=== PATIENT | male | born 1940 | race Caucasian/White ===

== ENCOUNTER 2017-09-30 14:00 | Day surgery (SDC) | payer MEDICARE ==
[~2017-09-30] VITALS: Ht 180.3 cm; Wt 80.9 kg
--- NOTE | 2017-09-30 14:10 | NUR ---
RECIEVED TO ROOM 2225 DIRECT ADMIT FROM [facility] VIA AMBULANCE. REPORTS VOMITING FOR PAST 2 DAYS. CHANDLER TO Dada GUAJARDO.
[2017-09-30] MEDS ORDERED: CARAFATE1 G PO (14:11)
[2017-09-30] MEDS ORDERED: ZOFRAN ODT4 MG/UDTAB PO (14:11)
[2017-09-30] MEDS ORDERED: TRADJENTA5 MG PO (14:12)
[2017-09-30] MEDS ORDERED: GLUCOPHAGE500 MG PO (14:13)
[2017-09-30] MEDS ORDERED: LISINOPRIL5 MG PO (14:13)
[2017-09-30] MEDS ORDERED: TRICOR145 MG PO (14:14)
[2017-09-30] MEDS ORDERED: LIPITOR20 MG PO (14:15)
[2017-09-30 14:22] VITALS: BP 168/91; BMI 24.8
[2017-09-30 15:03] VITALS: Ht 180.3 cm; Wt 80.9 kg
--- NOTE | 2017-09-30 15:30 | NUR ---
NO CHANGES NOTED AT THIS TIME. PREOP MEDS GIVEN.
--- NOTE | 2017-09-30 16:12 | NUR ---
OFF FLOOR TO GI LAB VIA BED.
--- NOTE | 2017-09-30 18:00 | NUR ---
RETURNED TO ROOM FROM GI LAB. VSS. CONTINUE TO BE NPO. VISITOR AT BEDSIDE.
[2017-09-30 20:56] VITALS: BP 170/92
[2017-10-01 01:42] VITALS: BP 137/74
--- NOTE | 2017-10-01 04:45 | NUR ---
PT RESTING QUIETLY, EYES CLOSED. RESP EVEN, UNLABORED. NO DISTRESS NOTED. CONTINUE NEWSPAPER PEDDLER'S PLAN OF CARE.
[2017-10-01 05:22] VITALS: BP 131/79
[2017-10-01 06:22] LABS: BASOPHILS 0.3 % (0-2); EOSINOPHILS 6.9 % (0-7); HEMATOCRIT 36.7 % (42.0-54.0); HEMOGLOBIN 11.5 g/dL (13.5-17.5); IMMATURE GRANULOCYTES 0.2 % (0-5); LYMPHOCYTES 30.8 % (15-50); MCH 26.9 pg (26.0-34.0); MCHC 31.3 g/dL (31.0-37.0); MCV 85.7 fL (80.0-100.0); MEAN PLATELET VOLUME 9.4 fL (7.4-10.4); MONOCYTES 9.8 % (2-11); PLATELET COUNT 237 10x3/uL (130-400); RBC 4.28 10x6/uL (4.20-6.10); WBC 6.6 10x3/uL (4.8-10.8)
[2017-10-01 06:38] LABS: ANION GAP 11.5 mmol/L (8-16); CALCIUM 8.5 mg/dL (8.5-10.1); CARBON DIOXIDE 26.9 mmol/L (21.0-32.0); CREATININE - SERUM 1.2 mg/dL (0.6-1.3); POTASSIUM - SERUM 3.4 mmol/L (3.5-5.1)
--- NOTE | 2017-10-01 07:30 | NUR ---
ASSESSMENT COMPLETE. IV TO R AC PATENT. NS INFUSING AT 125 CC/HR VIA PUMP. DENIES ANY NEEDS AT THIS TIME.
--- NOTE | 2017-10-01 12:00 | NUR ---
TOLERATING FOOD WITHOUT DIFFICULTY.
[2017-10-01 12:31] VITALS: BP 146/71
[2017-10-01] MEDS ORDERED: PROTONIX40 MG PO (13:19)
[2017-10-01] MEDS ORDERED: CARAFATE1 G/10 ML PO (13:19)
--- NOTE | 2017-10-01 14:20 | NUR ---
IV REMOVED. CATHETER TIP INTACT. DISCHARGE TEACHING GIVEN TO PATIENT. VOICED UNDERSTANDING.
--- NOTE | 2017-10-01 14:30 | NUR ---
DC'D HOME WITH FAMILY. ESCORTED TO VEHICLE VIA WC WITH BELONGINGS.
== END 2017-10-01 14:30 | disposition home or self-care (01) ==
LOC: OBSVTIME → D.OPS 14:00 → D.MS 14:04 → OBSVTIME 14:04 → D.MS 14:04 → D.OPS 10-01 14:30 → D.MS 10-01 14:30
PROVIDERS: Internal Medicine Gastroenterology
DX: T18.128A Food in esophagus causing other injury, initial encounter (principal); K22.2 Esophageal obstruction; K44.9 Diaphragmatic hernia without obstruction or gangrene; K29.40 Chronic atrophic gastritis without bleeding; K76.0 Fatty (change of) liver, not elsewhere classified; K57.90 Diverticulosis of intestine, part unspecified, without perforation or abscess without bleeding; D50.9 Iron deficiency anemia, unspecified; E11.9 Type 2 diabetes mellitus without complications; E78.5 Hyperlipidemia, unspecified; I10 Essential (primary) hypertension; K21.9 Gastro-esophageal reflux disease without esophagitis; F32.9 Major depressive disorder, single episode, unspecified; Z79.84 Long term (current) use of oral hypoglycemic drugs; Z79.899 Other long term (current) drug therapy; Z87.891 Personal history of nicotine dependence